=== PATIENT | male | born 1995 | race Two or more races ===

== ENCOUNTER 2017-05-22 18:20 | Emergency (ER) | payer OTHER ==
[2017-05-22 18:26] VITALS: BP 138/68; PULSE 89; RESP 16; TEMP 97.9; O2SAT 98
--- NOTE | 2017-05-22 19:02 | EDPHY ---
H & P Time Seen by Provider: 05/22/17 18:37 HPI/ROS: CHIEF COMPLAINT: Possible black mold exposure HISTORY OF PRESENT ILLNESS: This patient is a 22 y/o male arriving with his friend with concerns that he had been exposed to black mold. He and his roommate noted black-colored mold in their bathroom, particularly in the shower. His roommate went home to [place], and a provider there reportedly told him he had black mold in his lungs. The patient states someone from the apartment complex assessed the bathroom for mold , but he is unsure what the results of this assessment are. The patient feels well generally. He admits he smokes often (no tobacco use) and has a cough, but has not noted any recent change in symptoms. No fever, chest pain, shortness of breath, congestion, or skin, eye, or throat irritation. REVIEW OF SYSTEMS: A 10 point review of systems was performed and is negative with the exception of the elements mentioned in the history of present illness. Past Medical/Surgical History: Denies. Social History: Friend at bedside. Student. Lives in [place]. Smoking Status: Current every day smoker Physical Exam: General Appearance: Alert, pleasant Eyes: Pupils equal and round, no conjunctival pallor or injection ENT, Mouth: Mucous membranes moist Neck: Normal inspection Respiratory: Lungs are clear to auscultation Cardiovascular: Regular rate and rhythm Gastrointestinal: Abdomen is soft and non-tender Neurological: A&O, nonfocal exam Skin: Warm and dry, no rash Extremities: Nontender, no pedal edema Psychiatric: Mood and affect normal Constitutional: Initial Vital Signs Temperature (C) 36.6 C 05/22/17 18:22 Heart Rate 89 05/22/17 18:22 Respiratory Rate 16 05/22/17 18:22 Blood Pressure 138/68 H 05/22/17 18:22 O2 Sat (%) 98 05/22/17 18:22 O2 Delivery Mode Room Air Allergies/Adverse Reactions: No Known Allergies Allergy (Unverified 05/22/17 18:26) Home Medications: Medication Instructions Recorded NK [No Known Home Meds] 05/22/17 Medical Decision Making ED Course/Re-evaluation: 22 y/o male presents with concern for black mold exposure. He is asymptomatic. Exam is unremarkable. Lungs are clear to auscultation. Reassured pt. Encouraged patient to discontinue smoking. Plan to d/c home in good condition. Departure - Departure Disposition: Home, Routine, Self-Care Clinical Impression: Concern about black mold in lungs Condition: Good Instructions: Additional Information Additional Instructions: 1. Clean your bathroom and shower area with a bleach-based spinneret cleaner. 2. Keep the fan on to dry the room as much as possible. 3. Return with any concerns. Referrals: DUSTIN Melo,. [Clinic] - As per Instructions Report Scribed for: Betzy Messer Report Scribed by: Danika Dutta Date of Report: 05/22/17 Time of Report: 19:03 Physician Review and Approval Statement: 05/22/17 19:03 Portions of this note were transcribed by a biomedical engineering supervisor. I personally performed a history, physical exam, medical decision making, and confirmed accuracy of information the transcribed note.
== END 2017-05-22 19:16 | disposition home or self-care (01) ==
DX: Z77.120 Contact with and (suspected) exposure to mold (toxic) (principal); F17.200 Nicotine dependence, unspecified, uncomplicated